=== PATIENT | male | born 1960 | race Caucasian/White ===

== ENCOUNTER 2022-08-15 08:43 | Day surgery (SDC) | payer MEDICARE ==
[~2022-08-15] VITALS: Ht 180.3 cm; Wt 83.9 kg
[~2022-08-15 08:43] MED LIST: CEFUROXIME 1MG/0.1ML INTRACAMERAL INJ As Ordered ONE; CYCLOPENTOLATE 1% OPHTH SOLN 2ML BTL OD SCH; ECOT81TA5 PO; GABA-1171 PO; LIDOCAINE 1% SDV 5ML VIAL As Ordered ONE; LOSA50TA28 PO; METO1TAB32 PO; MIDO10TA PO; OFLOXACIN 0.3 % (OCUFLOX) OPTH SOL 5ML OD SCH; PHENYLEPHRINE 2.5% OPHTH SOL 2ML OD SCH; PROPARACAINE 0.5% OPHTH SOL 15ML OD ONE; PROT1TAB2 PO; ROSU10TA6 PO; TROPICAMIDE 1% OPHTH SOLN 15ML OD SCH; TUMS500C PO; VITMTA PO
[2022-08-15] MEDS ORDERED: guaiFENesin SYRUP 200MG 10ML UDC PO ONE ×2 (09:45→10:35)
[2022-08-15] MEDS ORDERED: fentaNYL 100 MCG/2 ML INJECTION As Ordered ONE (09:49)
[2022-08-15] MEDS ORDERED: MIDAZOLAM INJ 2MG/2ML VIAL As Ordered ONE (09:49)
[2022-08-15] MEDS ORDERED: BSS IRR 500ML/OMIDRIA 4ML IRR BAG (OR ONLY) As Ordered ONE (10:03)
[2022-08-15 10:12] LABS: HEMOGLOBIN 9.5 g/dl (13.5-17.5); MEAN CORPUSCULAR HEMOGLOBIN 29.4 pg (27.0-33.0); MEAN CORPUSCULAR HGB CONC 31.7 g/dl (32.0-36.5); MEAN CORPUSCULAR VOLUME 92.9 fl (80.0-96.0); RED BLOOD COUNT 3.23 10^6/uL (4.30-6.10); WHITE BLOOD COUNT 5.7 10^3/uL (4.0-10.0)
[2022-08-15] MEDS ORDERED: TRYPAN BLUE 0.06 % 2.25 ML OPHTH SYR (VISIONBLUE) As Ordered ONE (10:13)
[2022-08-15 11:40] LABS: PLATELET COUNT, AUTOMATED 62 10^3/uL (150-450)
[2022-08-15] MEDS ORDERED: ALBUTEROL SULFATE 2.5MG/0.5ML INH NEB SOLN NEB ONE (11:45)
[2022-08-15] MEDS ORDERED: flumazeniL 0.5MG/5ML VIAL IV STA (13:11)
[2022-08-15] MEDS ORDERED: flumazeniL 0.5MG/5ML VIAL IV SCH (13:15)
[2022-08-15] MEDS: NALOXONE INJ 0.4MG/1ML VIAL IV PRN ×2 (13:15→13:40)
[2022-08-15 14:20] VITALS: BP 156/84; TEMP 97.6; O2SAT 92
[2022-08-16] MEDS ORDERED: flumazeniL 0.5MG/5ML VIAL IV ONE (13:11)
== END 2022-08-15 14:36 | disposition home or self-care (01) ==
LOC: M SDC 08:43 → EDSEX 12:15 → M SDC 14:36
PROVIDERS: ATTEND Ophthalmology
DX: H25.11 Age-related nuclear cataract, right eye (principal); I25.2 Old myocardial infarction; Z95.5 Presence of coronary angioplasty implant and graft; I10 Essential (primary) hypertension; Z79.899 Other long term (current) drug therapy; Z87.891 Personal history of nicotine dependence
CPT/HCPCS: 36415; 66984; 84132; 85027; 85049; 85055; J0697; J1097; J2250; J2310; J3010; V2632

== ENCOUNTER → 2023-01-16 | Day surgery (SDC) | payer MEDICARE ==
[~2023-01-16] VITALS: Ht 180.3 cm; Wt 73.9 kg
[~2023-01-16] MED LIST changes: -CYCLOPENTOLATE 1% OPHTH SOLN 2ML BTL OD SCH; +ISOS1TAB35 PO; +LACT10SO3 PO; +LEVE250T5 PO; +LOSA100T46 PO; -OFLOXACIN 0.3 % (OCUFLOX) OPTH SOL 5ML OD SCH; +OLAN2.5T25 PO; +PANT40TA29 PO; -PHENYLEPHRINE 2.5% OPHTH SOL 2ML OD SCH; -PROPARACAINE 0.5% OPHTH SOL 15ML OD ONE; +PROPARACAINE 0.5% OPHTH SOL 15ML OS ONE; -TROPICAMIDE 1% OPHTH SOLN 15ML OD SCH; +XIFA550T PO
[2023-01-16] MEDS: TROPICAMIDE 1% OPHTH SOLN 15ML OS SCH ×2 (12:40→12:49)
[2023-01-16] MEDS: CYCLOPENTOLATE 1% OPHTH SOLN 2ML BTL OS SCH ×2 (12:41→12:48)
[2023-01-16] MEDS: OFLOXACIN 0.3 % (OCUFLOX) OPTH SOL 5ML OS SCH ×2 (12:41→12:49)
[2023-01-16] MEDS: PHENYLEPHRINE 2.5% OPHTH SOL 2ML OS SCH ×2 (12:42→12:48)
[2023-01-16 13:55] VITALS: BP 120/59; TEMP 97.5; O2SAT 96
== END | disposition home or self-care (01) ==
LOC: M SDC 12:00
PROVIDERS: ATTEND Ophthalmology
DX: H25.12 Age-related nuclear cataract, left eye (principal); I10 Essential (primary) hypertension; E78.5 Hyperlipidemia, unspecified; R60.0 Localized edema; Z98.61 Coronary angioplasty status; I25.10 Atherosclerotic heart disease of native coronary artery without angina pectoris; I25.2 Old myocardial infarction; Z79.82 Long term (current) use of aspirin; Z79.899 Other long term (current) drug therapy; Z92.21 Personal history of antineoplastic chemotherapy; D64.9 Anemia, unspecified; Z79.2 Long term (current) use of antibiotics
CPT/HCPCS: 66984; J0697; V2632